=== PATIENT | male | born 2000 | race Hispanic/Latino ===

== ENCOUNTER 2024-04-06 02:11 | Emergency (ER) | payer SELFPAY ==
[2024-04-06 04:16] LABS: #Basophils 0.06 10x3/uL (0.0-0.2); #Eosinophils 0.13 10x3/uL (0.0-0.5); #Monocytes 0.57 10x3/uL (0.0-1.1); #Neutrophils 4.87 10x3/uL (1.5-8.4); %Basophils 0.7 % (0.0-2.0); %Eosinophils 1.4 % (0.0-6.0); %Lymphocytes 37.7 % (18.0-47.0); %Monocytes 6.3 % (0.0-10.0); %Neutrophils 53.4 % (40.0-75.0); Hematocrit 47.4 % (38.8-50.0); Hemoglobin 16.8 g/dL (13.5-17.5); Mean Corpuscular HGB CONC 35.4 g/dL (32.0-36.0); Mean Corpuscular Hemoglobin 29.2 pg (27.0-33.0); Mean Corpuscular Volume 82.3 fL (81.2-95.1); Mean Platelet Volume 10.5 fL (7.4-10.4); Platelet Count 321 10x3/uL (150-450); RBC Distribution Width 12.4 % (11.5-14.5); Red Blood Cell (RBC) Count 5.76 10x6/uL (4.32-5.72); White Blood Cell (WBC) Count 9.11 10x3/uL (3.5-10.5)
[2024-04-06 04:28] LABS: Anion Gap 13 mmol/L (10-20); BUN (Urea Nitrogen) 15 mg/dL (8.9-20.6); Calc. Creatinine Clearance 0 mL/min (70-130); Calcium 9.9 mg/dL (7.8-10.44); Carbon Dioxide 25 mmol/L (22-29); Chloride 107 mmol/L (98-107); Estimated GFR 116; Glucose 95 mg/dL (70-105); Sodium 141 mmol/L (136-145)
[2024-04-06 04:35] LABS: Troponin I Less than 0.010 ng/mL (< 0.028)
== END 2024-04-06 05:19 | disposition home or self-care (01) ==
LOC: CSHERS 02:11
DX: R07.9 Chest pain, unspecified (principal)
CPT/HCPCS: 71045; 80048; 83880; 84484; 85025; 93005